=== PATIENT | female | born 1965 | race African-American/Black ===

== ENCOUNTER 2017-10-03 13:52 | Emergency (ER) | payer MEDICAID ==
[~2017-10-03] VITALS: Ht 154.9 cm; Wt 79.8 kg
[2017-10-03 13:54] VITALS: BP 127/77
[2017-10-03] MEDS ORDERED: KETOROLAC TROMETH 60MG/2ML VIAL IM ONE (15:15)
== END 2017-10-03 15:52 | disposition home or self-care (01) ==
LOC: ER 13:52
DX: S83.92XA Sprain of unspecified site of left knee, initial encounter (principal); M47.812 Spondylosis without myelopathy or radiculopathy, cervical region; X58.XXXA Exposure to other specified factors, initial encounter; Y93.89 Activity, other specified; Y92.89 Other specified places as the place of occurrence of the external cause; Y99.8 Other external cause status
CPT/HCPCS: 72040; 73562; 96372; 99284; J1885

== ENCOUNTER 2019-10-22 15:24 | Emergency (ER) | payer MEDICAID ==
[~2019-10-22] VITALS: Ht 154.9 cm; Wt 70.8 kg
[2019-10-22 18:40] VITALS: BP 115/62
== END 2019-10-22 20:05 | disposition home or self-care (01) ==
LOC: ER 15:30
DX: M24.811 Other specific joint derangements of right shoulder, not elsewhere classified (principal)